=== PATIENT | male | born 1945 | race Caucasian/White ===

== ENCOUNTER 2019-12-10 16:02 | Outpatient (CLI) | payer MEDICARE, BC, SELFPAY ==
--- NOTE | ~2019-12-10 | CT_ITS ---
EXAMINATION: CT abdomen pelvis wo con EXAM DATE: 12/10/2019 16:18 INDICATION: Left-sided groin pain. Kidney stone. TECHNIQUE: Spiral CT of the abdomen and pelvis was performed without contrast. Axial, coronal and sag ittal images were reviewed. The dose-length product (DLP) for this examination was 516.36 mGy-cm. T he exposure was tailored according to patient size (auto mA exposure control), and iterative reconstr uction (ASIR) was used as additional dose reduction technique. There is no prior study for compariso n. FINDINGS: There are 2 punctate left calyceal stones. No hydronephrosis or ureteral stones. There is m ild prostatomegaly. The bladder is unremarkable. The liver, spleen, adrenal glands and pancreas are unremarkable. There is cholelithiasis within an otherwise unremarkable gallbladder. No evidence of obstructive biliary disease. There is no retroperitoneal or pelvic lymphadenopathy. Small umbilic al and left inguinal fat-containing hernia. Mild scattered arteriosclerotic disease. The appendix is normal. There is a 3 cm duodenal diverticulum. There is expected amount of colonic stool. There is mild sigmoid colonic diverticulosis. There is no adjacent inflammatory change to sug gest diverticulitis. No free intraperitoneal gas. The heart is normal in size. There are no peric ardial or pleural effusions. The lung bases are unremarkable. There are no osteoblastic or osteolyt ic lesions identified. There is chronic L5 spondylolysis bilaterally with grade 2 anterolisthesis L5 on S1. IMPRESSION: 1. Punctate left nephrolithiasis. No hydronephrosis or acute findings. 2. Mild colonic diverticulosis. 3. Small umbilical and left inguinal fat-containing hernias. 4. Duodenal diverticulum. 5. Cholelithiasis Reviewed, dictated and finalized at location A. [employer] B[employer]PER
== END 2019-12-10 16:03 | disposition home or self-care (01) ==
PROVIDERS: PCP Family Medicine; Visit Provider Family Medicine
DX: N20.0 Calculus of kidney (principal); K57.30 Diverticulosis of large intestine without perforation or abscess without bleeding; K40.90 Unilateral inguinal hernia, without obstruction or gangrene, not specified as recurrent; K42.9 Umbilical hernia without obstruction or gangrene; K57.10 Diverticulosis of small intestine without perforation or abscess without bleeding; K80.20 Calculus of gallbladder without cholecystitis without obstruction
CPT/HCPCS: 74176

== ENCOUNTER → 2020-11-03 09:06 | Outpatient (CLI) | payer MEDICARE, BC, SELFPAY ==
--- NOTE | ~2020-11-03 | MR_ITS ---
EXAMINATION: MR lumbar spine wo con DATE: 11/03/2020 09:55 INDICATION: Low back pain. TECHNIQUE: Magnetic resonance imaging (MRI) of the lumbar spine was performed without intravenous con trast. Sequences included sagittal T2-weighted FSE, sagittal T2-weighted FS FSE, sagittal T1-weighted FSE, and axial T2-weighted FSE. COMPARISON: None FINDINGS: There is 6 degrees dextrocurvature of thoracolumbar spine. There are chronic bilateral L5 p ars defects. There is 9 mm anterolisthesis of L5 on S1 and 3 mm retrolisthesis of L2 on L3. There is mild chronic height loss of L5 vertebral body posteriorly. There is severely decreased disc height at L2-L3, mildly decreased disc height at L3-L4, severely decreased disc height at L4-L5, and mildly de creased disc at L5-S1. The distal spinal cord signal intensity is normal. The conus medullaris is at L1. The following disc levels are specifically discussed: L1-L2: The disc is mildly bulging. There is mild bilateral facet joint osteoarthritis. There is mild bilateral neural foraminal stenosis. There is no central canal stenosis. L2-L3: The disc is bulging and has an annular fissure. There is moderate bilateral facet joint osteoa rthritis. There is moderate bilateral neural foraminal stenosis. There is mild central canal stenosis . L3-L4: The disc is bulging and has an annular fissure. There is mild bilateral facet joint osteoarthr itis. There is mild bilateral neural foraminal stenosis. There is mild central canal stenosis. L4-L5: The disc is bulging and has an annular fissure. There is severe right and moderate left facet joint osteoarthritis. There is moderate bilateral neural foraminal stenosis. There is mild central ca nal stenosis. L5-S1: The disc is bulging and has an annular fissure. There is mild bilateral facet joint osteoarthr itis. There is mild bilateral neural foraminal stenosis. There is no central canal stenosis. IMPRESSION: 1. Severe lumbar spondylosis. 2. Chronic bilateral L5 pars defects with grade 2 anterolisthesis of L5 on S1. Reviewed, dictated and finalized at location A. ER WASHER
== END ==
PROVIDERS: PCP Family Medicine; Visit Provider Family Medicine
DX: M54.5 Low back pain (principal); G89.29 Other chronic pain; N39.3 Stress incontinence (female) (male); M47.816 Spondylosis without myelopathy or radiculopathy, lumbar region; M53.86 Other specified dorsopathies, lumbar region; M43.17 Spondylolisthesis, lumbosacral region
CPT/HCPCS: 72148

== ENCOUNTER 2021-01-19 12:26 | Outpatient (CLI) | payer MEDICARE, BC, SELFPAY ==
[2021-01-19 13:30] LABS: Basophils Percent Auto 0.4 % (0.2-1.2); Eosinophils Absolute Auto 0.1 K/mm3 (0-0.3); Eosinophils Percent Auto 1.2 % (0-4.4); Hemoglobin 15.1 g/dL (14.0-18.0); Immature Granulocyte Absolute 0.02 K/mm3 (0.00-0.031); Immature Granulocyte Percent A 0.3 % (0-0.5); Lymphocytes Absolute Auto 1.42 K/mm3 (0.9-3.2); Lymphocytes Percent Auto 21.3 % (18.3-44.2); Mean Corpuscular HGB Conc 33.6 g/dl (32-36); Mean Corpuscular Hemoglobin 30.4 pg (26-34); Mean Corpuscular Volume 90.7 fl (80-100); Monocytes Absolute Auto 0.5 K/mm3 (0.1-0.6); Monocytes Percent Auto 7.3 % (2.6-8.5); Neutrophils Absolute Auto 4.6 K/mm3 (1.3-6.7); Neutrophils Percent Auto 69.5 % (45.5-73.1); Platelet Count Result 165 k/mm3 (150-375); Red Blood Count 4.96 M/mm3 (4.6-6.20); Red Cell Distribution Width 14.4 % (11.5-14.5); White Blood Count 6.7 K/mm3 (4.5-10.0)
[2021-01-19 13:42] LABS: Prothrombin Time 13.6 Seconds (11.1-14.7)
[2021-01-19 13:43] LABS: Partial Thromboplastin Time 34.9 SECONDS (22.3-36.8)
[2021-01-19 13:45] LABS: Anion Gap 3 mmol/L (8-16); Blood Urea Nitrogen 23 mg/dL (9-20); Calcium 8.9 mg/dL (8.4-10.2); Carbon Dioxide 32 mmol/L (22-30); Chloride 106 mmol/L (98-107); Estimated Glomerular Filt Rate > 60; Glucose 109 mg/dL (75-110); Potassium 4.1 mmol/L (3.4-5.0); Sodium 141 mmol/L (137-145)
== END 2021-01-19 12:27 | disposition home or self-care (01) ==
LOC: ANHSURGERY 12:33
PROVIDERS: PCP Family Medicine; Visit Provider Urology
DX: Z01.818 Encounter for other preprocedural examination (principal); N32.9 Bladder disorder, unspecified
CPT/HCPCS: 36415; 80048; 85025; 85610; 85730; 87086

== ENCOUNTER → 2021-01-23 02:59 | Outpatient (CLI) | payer MEDICARE, BC, SELFPAY ==
[2021-01-23 19:43] LABS: SARS-CoV-2 RNA PCR Negative
== END ==
PROVIDERS: PCP Family Medicine; Visit Provider Urology
DX: Z01.812 Encounter for preprocedural laboratory examination (principal); Z20.822 Contact with and (suspected) exposure to COVID-19
CPT/HCPCS: C9803; U0003; U0005

== ENCOUNTER 2021-01-27 15:57 | Inpatient (IN) | payer MEDICARE, BC, SELFPAY ==
[2021-01-14 15:21] VITALS: BMI 27.1
[2021-01-26] VITALS (13 sets, daily range): BP systolic 112–176; BP diastolic 81–98; PULSE 62–76; RESP 12–22; TEMP 36.1–36.8; O2SAT 96–100; BMI 27.3
[2021-01-26] MEDS: LACTATED RINGERS 1,000 ML 30 ML IV CONT (10:45)
--- NOTE | 2021-01-26 11:34 | WPDHPUPDATE1 ---
History and Physical Update Update Date/Time: 01/26/21 11:34 History and Physical has been reviewed, including an updated exam of the patient. There are NO changes in the patient's condition. Risks, benefits, and alternatives have been discussed and questions answered. Patient agrees to proceed with procedure.
--- NOTE | 2021-01-26 11:39 | WPDANESEPPF ---
Anes - Initial Pre Proc Eval Procedure: Operation Date: 01/26/21 12:45 Proposed Procedures p Cystoscopy, Possible Bilateral Retrograde Pyelogram, Possible Bilateral Stent Placement - Marcus Trevizo MD s Trans Urethral Resection Bladder Tumor, - Marcus Trevizo MD s Trans Urethral Resection Prostate - Marcus Trevizo MD Date/Time: 01/26/21 11:39 Surgeon: Marcus Trevizo MD Pre Op Diagnosis: bladder lesion Patient Data Age: 75 Gender: M Height: 5 ft 7 in Weight: 79.25 kg Allergies Allergy/AdvReac Type Severity Reaction Status Date / Time No Known Allergies Allergy Mild Unverified 01/26/21 10:28 Home Medications Medication Instructions Recorded Confirmed Type pantoprazole 40 mg tablet,delayed 40 mg PO QAM #30 tablet 12/10/19 01/26/21 Rx release zolpidem 10 mg tablet 10 mg PO . q.h.s. PRN #30 tablet 07/27/20 01/26/21 Rx fluticasone propionate [Flonase 1 spray INTRANASAL BID PRN 01/14/21 01/26/21 History Allergy Relief] gabapentin 200 mg PO TID 01/14/21 01/26/21 History Patient hx anesthesia problems: none Family hx anesthesia problems: none PMFSH Past Medical History Medical History Acute prostatitis Cholelithiasis Chronic low back pain Microscopic hematuria Peripheral neuropathy Ureteral stone Urinary stress incontinence, male Family History Family History Mother Patient's mother is Family history of malignant neoplasm Father Cerebrovascular accident Sibling Family history of coronary artery disease Social History Social History Smoking status: Never smoker Tobacco type: smokeless tobacco Smokeless tobacco user: chewing tobacco Second hand tobacco smoke exposure: No Additional smoking assessment comments: STATES 1 TIN/WEEK Alcohol intake: current Alcohol use details: STATES MAYBE 2 DRINKS/YEAR Substance use: never Substance use type: does not use Living arrangements: with family Spiritual care concerns: No Anes - Eval Final PreProcedure Day of Procedure 04/20/21 11:39 Patient weight: overweight Heart: regular rate and rhythm Lungs: clear to auscultation Airway: Mallampati scale class II Neurological: alert and oriented Last oral intake: >/= 8 hours ASA classification: III Emergent: no Anesthetic plan: proceed Anesthesia type and monitoring: general and standard monitoring Informed Consent: The patient's anesthetic plan and its attendant risks and benefits were discussed with the patient/family/POA. Questions were solicited and answers provided to the satisfaction of the patient/family/POA.
[2021-01-26] MEDS: ceFAZolin 2 GM/D5W 50 ML 2 GM/50 ML BAG IVPB (12:10)
--- NOTE | 2021-01-26 13:20 | SUR.OPER ---
BILATERAL URETERAL STENTS 4.8FR CONTOUR LOT [id number], EXP 11-09-23 RIGHT AND LEFT
[2021-01-26] MEDS: LIDOCAINE HCL 2% GEL UROJET 10 ML PKG MUCOUS MEM (13:24)
--- NOTE | 2021-01-26 13:27 | P.OP_ITS ---
Procedure Note - Detailed Date of procedure: 01/26/21 Pre-op diagnosis: bladder lesion Post-op diagnosis: same Procedure performed: Cystoscopy, bilateral retrogrades, bilateral distal ureteroscopy, bilateral ureteral stent placement 4.8 Ivorian contour, transurethral resection of large bladder tumor area greater than 5 cm, transurethral resection of prostate Description of procedure: Patient is taken the operative suite and correctly identified. Once anesthesia was obtained he was placed in dorsal lithotomy position and prepped and draped usual sterile fashion. Twenty-two Ivorian scope was inserted into the meatus. He does have some lateral lobe hypertrophy but more impressively has some papillary gross the prostatic fossa near the bladder neck area. Upon entering the bladder he has diffuse bladder tumors scattered throughout. These are extending on the posterior wall, right wall, trigone area obscuring the right ureteral orifice. At this point time a 24 Ivorian resectoscope sheath was inserted in. We resected most visible tumor along the posterior wall lateral ambriz. We resected the tumors around the right ureteral orifice. We also then sent this tissue for analysis. We then went ahead and resected the prostate in order to remove the urethral involvement. This also was was sent as a separate specimen. Hemostasis was achieved using a ball electrode. We then went ahead and placed a guidewire into the ureteral o rifices. Rigid ureteral scope was then inserted to both the right and the left ureter. No discrete tumor noted in the intramural ureter at this point time but he is at high risk. Pyelograms were performed bilaterally without any evidence of filling defects. Given the high involvement around the orifices there was concern regarding edema. We went ahead and placed 4.8 Ivorian contour stents bilaterally. 2% viscous lidocaine was then inserted into the urethra. Twenty- four Ivorian [address] was placed connected to continuous bladder irrigation. He is taken recovery stable condition. Patient will be admitted for CBI. Stents will need to remain in for minimum of probably 6 weeks if he can tolerate it. He will then require a reinspection resection in the operating room at that time. Anesthesia: GLMA Surgeon: Marcus Trevizo MD Estimated blood loss (mL): 25 Drains: Yes Packing: No Pathology: yes Complications: No immediate complications Condition: stable Disposition: PACU
[2021-01-26] MEDS: fentaNYL CITRATE INJ (*CRX) 100 MCG/2 ML VIAL 25 MCG IV PUSH ×6 (13:47→14:40)
[2021-01-26] MEDS: DEXTROSE 5%/LACTATED RINGERS 1,000 ML 125 ML IV CONT (15:51)
[2021-01-26] MEDS: GABAPENTIN 100 MG CAPSULE 200 MG PO ×2 (16:44→21:01)
[2021-01-26] MEDS: MORPHINE SULFATE (*CRX) 2 MG/ML INJ IV PUSH (20:15)
[2021-01-26] MEDS: ONDANSETRON INJ 4 MG/2 ML VIAL IV PUSH (20:15)
[2021-01-26] MEDS: HYOSCYAMINE SULFATE 0.125 MG TABLET SUBLINGUAL (20:19)
[2021-01-26] MEDS: HYDROcodone/acetaminophen (*CRX) 5-325 MG TABLET 1 TAB PO (21:00)
[2021-01-26] MEDS: ZOLPIDEM TARTRATE (*CRX) 5 MG TABLET 10 MG PO (21:47)
--- NOTE | ~2021-01-27 | XR_ITS ---
EXAMINATION: XR retrograde pyelo w/stent BI DATE: 01/26/2021 13:29 INDICATION: Bilateral ureteral stents. TECHNIQUE: 10 fluoroscopic images of the abdomen and pelvis were obtained during procedure performed by Dr. Trevizo. Radiologist was not present for the imaging or procedure. The amount of fluoroscopy time used during this procedure was 0.6 minutes. COMPARISON: 12/10/2019 FINDINGS: Images demonstrate initially retrograde contrast injection into the right ureter and renal collecting system with a wire advanced into the right renal hilum. Subsequently there is retrograde contrast in jection into the left ureter and renal collecting system. Final images demonstrate placement of bilat eral ureteral stents with loops formed in the bladder and proximal tips extending into the bilateral renal pelvises. IMPRESSION: 1. Placement of bilateral internal ureteral stents which extend from the left and right ureteral pelv ises into the bladder. See procedure note for further detail. Reviewed, dictated and finalized at location A. IMPRESSION: 1. Placement of bilateral internal ureteral stents which extend from the left a nd right ureteral pelvises into the bladder. See procedure note for further det ail.
[2021-01-27 01:02] VITALS: BP 143/83; PULSE 75; RESP 18; TEMP 36.6; O2SAT 95
[2021-01-27 04:11] VITALS: BP 158/86; PULSE 76; RESP 18; TEMP 36.4; O2SAT 98
[2021-01-27] MEDS: GABAPENTIN 100 MG CAPSULE 200 MG PO ×3 (05:01→21:00)
[2021-01-27 06:11] LABS: Hematocrit 41.8 % (42.0-52.0); Hemoglobin 13.9 g/dL (14.0-18.0)
[2021-01-27 06:22] LABS: Anion Gap 6 mmol/L (8-16); Blood Urea Nitrogen 15 mg/dL (9-20); Calcium 8.8 mg/dL (8.4-10.2); Carbon Dioxide 29 mmol/L (22-30); Chloride 106 mmol/L (98-107); Estimated CRCL calculation 58 ml/min; Estimated Glomerular Filt Rate > 60; Glucose 130 mg/dL (75-110); Potassium 4.1 mmol/L (3.4-5.0); Sodium 141 mmol/L (137-145)
--- NOTE | 2021-01-27 07:58 | WPDUROPN2 ---
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 From resection of large bladder tumor involving the floor posterior wall right lateral wall as well as bladder neck and prostatic urethra. Bilateral ureteral stents also placed. Continue with CBI this morning re-evaluate this afternoon. He may require another 24 hour stay with CBI. Will plan Bergman catheter until next Monday. Further recommendation will be made pending his pathology report. If there is no muscle invasion then I would recommend repeat cysto with possible resection in the OR in 6 weeks time with hopefully removal of stents and bilateral ureteroscopy at that time Subjective Subjective Date/Time Seen: 01/27/21 07:58 Post Op day: 1 Principal diagnosis: Bladder tumors Interval history: postoperative day 1. From resection of a large bladder tumor. Also placed bilateral ureteral stents. His urine is still somewhat bloody and CBI. Review of Systems Review of Systems: All systems reviewed & are unremarkable except as noted in HPI and below Exam Const: General: cooperative and comfortable Chest: Chest palpation & inspection: normal inspection of the chest Resp: Effort & Inspection: normal respiratory effort Cardio: Rate: regular rate Rhythm: regular rhythm GI: GI Palp: Yes Soft to palpation Urinary Catheter: Urinary Catheter: patent and draining and urine red Objective Data Vital Signs Vital Signs: Vital Signs - 24 hr 01/26/21 10:25 01/26/21 13:34 01/26/21 13:49 Temperature 36.8 C 36.4 C L Pulse Rate 75 73 66 Respiratory Rate 18 17 19 Blood Pressure 112/85 163/88 H 173/98 H Pulse Oximetry 100 100 100 01/26/21 14:05 01/26/21 14:20 01/26/21 14:37 Temperature Pulse Rate 63 76 62 Respiratory Rate 15 22 H 12 Blood Pressure 176/93 H 159/89 H 163/89 H Pulse Oximetry 100 100 96 01/26/21 14:51 01/26/21 15:03 01/26/21 15:15 Temperature 36.1 C L Pulse Rate 67 66 65 Respiratory Rate 16 16 16 Blood Pressure 162/83 H 165/81 H 153/91 H Pulse Oximetry 96 96 96 01/26/21 15:30 01/26/21 16:00 01/26/21 17:00 Temperature 36.2 C L 36.7 C 36.8 C Pulse Rate 68 66 67 Respiratory Rate 16 16 16 Blood Pressure 168/95 H 150/89 H 142/84 H Pulse Oximetry 97 99 99 01/26/21 19:45 01/27/21 01:02 01/27/21 04:11 Temperature 36.7 C 36.6 C 36.4 C Pulse Rate 65 75 76 Respiratory Rate 18 18 18 Blood Pressure 154/83 H 143/83 H 158/86 H Pulse Oximetry 98 95 98 Intake/Output Intake/Output: Intake & Output 01/24/21 01/25/21 01/26/21 01/27/21 23:59 23:59 23:59 23:59 Intake Total 5670 600 Output Total 7900 5545 Balance -7954 -2838 Meds/Results Medications: Active Medications Generic Name Dose Route Start Last Admin Trade Name Freq PRN Reason Stop Dose Admin Hydrocodone Bitart/Acetaminophen 1 tab 01/26/21 15:06 01/26/21 21:00 Hydrocodone/Acetaminophen (*Crx) 5-325 Mg Tablet PO 1 tab Q4H PRN Administration Pain Rated 1-6 Cephalexin HCl 500 mg 01/27/21 09:00 Cephalexin 500 Mg Capsule PO QID JOYCE Docusate Sodium 100 mg 01/26/21 17:00 01/26/21 16:44 Docusate Sodium 100 Mg Capsule PO Not Given BID [facility] Fluticasone Propionate 1 spray 01/26/21 15:06 Fluticasone Propionate 0.05% Na Spr 16 Gm Btl (*Bkc) NASAL BID PRN SEASONAL ALLERGIES Gabapentin 200 mg 01/26/21 15:40 01/27/21 05:01 Gabapentin 100 Mg Capsule PO 200 mg Q8HR JOYCE Administration Hyoscyamine 0.125 mg 01/26/21 15:06 01/26/21 20:19 Hyoscyamine Sulfate 0.125 Mg Tablet SUBLINGUAL 0.125 mg Q6H PRN Administration Bladder Spasm Morphine Sulfate 2 mg 01/26/21 15:06 01/26/21 20:15 Morphine Sulfate (*Crx) 2 Mg/Ml Inj IV PUSH 2 mg Q2H PRN Administration Pain Rated 7-10 Naloxone HCl 0.1 mg 01/26/21 15:06 Naloxone Hcl 0.4 Mg/Ml Vial IV PU
[2021-01-27] MEDS: CEPHALEXIN 500 MG CAPSULE PO ×4 (09:01→20:39)
[2021-01-27] MEDS: DOCUSATE SODIUM 100 MG CAPSULE PO (09:02)
[2021-01-27] MEDS: PANTOPRAZOLE 40 MG TABLET PO (09:02)
--- NOTE | 2021-01-27 09:14 | WPDANESPN ---
Anes - Prog Note Post-Op Date/Time: 01/27/21 09:14 Cardiovascular status: normal Respiratory status: normal Airway patency: baseline Mental status: baseline Post-Op hydration status: normal Vital Signs: Last Vital Signs Temp 36.4 C 01/27/21 04:11 Pulse 76 01/27/21 04:11 Resp 18 01/27/21 04:11 BP 158/86 H 01/27/21 04:11 Pulse Ox 98 01/27/21 04:11 Pain Score (VAS): no c/o pain I/O: Intake & Output 01/26/21 01/27/21 01/27/21 23:59 07:59 15:59 Intake Total 2170 600 240 Output Total 750 1625 Balance 1420 -1025 240 Laboratory Tests 01/27/21 05:51 01/27/21 05:51 01/27/21 01/27/21 05:51 05:51 Hgb 13.9 L Hct 41.8 L Sodium 141 Potassium 4.1 Chloride 106 Carbon Dioxide 29 Anion Gap 6 L BUN 15 D Creatinine 0.90 Estim Creat Clear Calc 58 Estimated GFR > 60 Glucose 130 H Calcium 8.8 Post-procedural complaints: none Patient Feedback: Patient satisfied with anesthetic care.
--- NOTE | 2021-01-27 09:47 | WPDANESPN ---
Anes - Prog Note Post-Op Date/Time: 01/27/21 09:47 Cardiovascular status: normal Respiratory status: normal Airway patency: baseline Mental status: baseline Post-Op hydration status: normal Vital Signs: Last Vital Signs Temp 36.4 C 01/27/21 04:11 Pulse 76 01/27/21 04:11 Resp 18 01/27/21 04:11 BP 158/86 H 01/27/21 04:11 Pulse Ox 98 01/27/21 04:11 Pain Score (VAS): 0 I/O: Intake & Output 01/26/21 01/27/21 01/27/21 23:59 07:59 15:59 Intake Total 2170 600 240 Output Total 750 1625 Balance 1420 -1025 240 Laboratory Tests 01/27/21 05:51 01/27/21 05:51 01/27/21 01/27/21 05:51 05:51 Hgb 13.9 L Hct 41.8 L Sodium 141 Potassium 4.1 Chloride 106 Carbon Dioxide 29 Anion Gap 6 L BUN 15 D Creatinine 0.90 Estim Creat Clear Calc 58 Estimated GFR > 60 Glucose 130 H Calcium 8.8 Post-procedural complaints: none Patient Feedback: Patient satisfied with anesthetic care.
[2021-01-27 10:28] VITALS: BP 141/76; PULSE 70; RESP 18; TEMP 36.3; O2SAT 96
[2021-01-27 14:14] VITALS: BP 139/73; PULSE 71; RESP 16; TEMP 36.1; O2SAT 97
[2021-01-27 19:44] VITALS: BP 127/78; PULSE 74; RESP 17; TEMP 36.6; O2SAT 95
[2021-01-27] MEDS: ZOLPIDEM TARTRATE (*CRX) 5 MG TABLET 10 MG PO (22:25)
[2021-01-28 04:40] VITALS: BP 156/87; PULSE 77; RESP 18; TEMP 36.7; O2SAT 96
[2021-01-28] MEDS: GABAPENTIN 100 MG CAPSULE 200 MG PO ×3 (05:01→21:33)
[2021-01-28] MEDS: CEPHALEXIN 500 MG CAPSULE PO ×4 (10:38→21:33)
[2021-01-28] MEDS: DOCUSATE SODIUM 100 MG CAPSULE PO ×2 (10:39→18:05)
[2021-01-28] MEDS: PANTOPRAZOLE 40 MG TABLET PO (10:39)
--- NOTE | 2021-01-28 12:43 | WPDUROPN2 ---
Progress Note: A&P Assessment and Plan (1) Bladder tumor: Code(s): D49.4 - Neoplasm of unspecified behavior of bladder Status: Acute Assessment and Plan: Keep CBI on low flow until this evening/night, then if light pink without clots, may wean to off. If urine turns red off CBI, restart on low flow. Irrigate catheter PRN until clear without clots. Some small clots were removed during irrigation by RN this morning, catheter is flowing well to gravity. Subjective Subjective Date/Time Seen: 01/28/21 12:43 Post Op day: 2 Principal diagnosis: Bladder tumors Interval history: postoperative day 2 s/p resection of a large bladder tumor. Also placed bilateral ureteral stents. His urine is still somewhat bloody and he continues on CBI. It was stopped for an hour prior to my visit this morning and was pink at the time it was turned off, but has since gotten red and clots are passing in the tubing. CBI was restarted on low flow. Review of Systems Cardiovascular: Cardiovascular: Denies chest pain Respiratory: Respiratory: Reports no additional respiratory complaints Gastrointestinal: Gastrointestinal: Denies abdominal pain, Denies nausea and Denies vomiting Genitourinary: Genitourinary: Reports hematuria and Denies flank pain Exam Resp: Effort & Inspection: normal respiratory effort Cardio: Rate: regular rate GI: GI Palp: Yes Soft to palpation and No Tenderness to palpation present (GI) : General: Yes no CVA tenderness Urinary Catheter: Urinary Catheter: patent and draining and urine clear Extrem: General: no edema Objective Data Vital Signs Vital Signs: Vital Signs - 24 hr 01/27/21 14:14 01/27/21 19:44 01/28/21 04:40 Temperature 96.9 F L 98 F 98.1 F Pulse Rate 71 74 77 Respiratory Rate 16 17 18 Blood Pressure 139/73 127/78 156/87 H Pulse Oximetry 97 95 96 Intake/Output Intake/Output: Intake & Output 01/25/21 01/26/21 01/27/21 01/28/21 23:59 23:59 23:59 23:59 Intake Total 5670 1870 490 Output Total 7900 2725 250 Balance -2230 -855 240 Meds/Results Medications: Active Medications Generic Name Dose Route Start Last Admin Trade Name Freq PRN Reason Stop Dose Admin Hydrocodone Bitart/Acetaminophen 1 tab 01/26/21 15:06 01/26/21 21:00 Hydrocodone/Acetaminophen (*Crx) 5-325 Mg Tablet PO 1 tab Q4H PRN Administration Pain Rated 1-6 Cephalexin HCl 500 mg 01/27/21 09:00 01/28/21 10:38 Cephalexin 500 Mg Capsule PO 500 mg QID JOYCE Administration Docusate Sodium 100 mg 01/26/21 17:00 01/28/21 10:39 Docusate Sodium 100 Mg Capsule PO 100 mg BID JOYCE Administration Fluticasone Propionate 1 spray 01/26/21 15:06 Fluticasone Propionate 0.05% Na Spr 16 Gm Btl (*Bkc) NASAL BID PRN SEASONAL ALLERGIES Gabapentin 200 mg 01/26/21 15:40 01/28/21 05:01 Gabapentin 100 Mg Capsule PO 200 mg Q8HR JOYCE Administration Hyoscyamine 0.125 mg 01/26/21 15:06 01/26/21 20:19 Hyoscyamine Sulfate 0.125 Mg Tablet SUBLINGUAL 0.125 mg Q6H PRN Administration Bladder Spasm Morphine Sulfate 2 mg 01/26/21 15:06 01/26/21 20:15 Morphine Sulfate (*Crx) 2 Mg/Ml Inj IV PUSH 2 mg Q2H PRN Administration Pain Rated 7-10 Naloxone HCl 0.1 mg 01/26/21 15:06 Naloxone Hcl 0.4 Mg/Ml Vial IV PUSH Q2M PRN Opiate Reversal Ondansetron HCl 4 mg 01/26/21 15:06 01/26/21 20:15 Ondansetron Inj 4 Mg/2 Ml Vial IV PUSH 4 mg Q12H PRN Administration Nausea And Vomiting Pantoprazole Sodium 40 mg 01/27/21 09:00 01/28/21 10:39 Pantoprazole 40 Mg Tablet PO 40 mg QAM JOYCE Administration Zolpidem Tartrate 10 mg 01/26/21 15:06 01/27/21 22:25 Zolpidem Tartrate (*Crx) 5 Mg Tablet PO 10 mg HS PRN Administration insomnia Radiology Results: ITS Impressions Retrograde Pyelogram 01/26/21 13:47 IMPRESSION: 1. Placement of bilateral internal ureteral stents which extend from the left and r
[2021-01-28 14:00] VITALS: BP 138/74; PULSE 82; RESP 16; TEMP 36.6; O2SAT 95
[2021-01-28] MEDS: HYOSCYAMINE SULFATE 0.125 MG TABLET SUBLINGUAL (18:10)
[2021-01-28 21:13] VITALS: BP 135/70; PULSE 75; RESP 16; TEMP 36.8; O2SAT 94
[2021-01-29] VITALS (12 sets, daily range): BP systolic 129–162; BP diastolic 72–91; PULSE 70–92; RESP 14–18; TEMP 36.1–37; O2SAT 93–100
[2021-01-29] MEDS: ZOLPIDEM TARTRATE (*CRX) 5 MG TABLET 10 MG PO ×2 (00:33→22:26)
[2021-01-29] MEDS: GABAPENTIN 100 MG CAPSULE 200 MG PO ×3 (06:11→22:26)
[2021-01-29] MEDS: DOCUSATE SODIUM 100 MG CAPSULE PO ×2 (08:34→16:35)
[2021-01-29] MEDS: PANTOPRAZOLE 40 MG TABLET PO (08:34)
[2021-01-29] MEDS: CEPHALEXIN 500 MG CAPSULE PO ×4 (08:34→22:27)
--- NOTE | 2021-01-29 12:12 | WPDUROPN2 ---
Progress Note: A&P Assessment and Plan (1) Bladder tumor: Code(s): D49.4 - Neoplasm of unspecified behavior of bladder Status: Acute Assessment and Plan: Urine bloody again after 2-3 hours off CBI with activity. Will go to OR today for : Cysto with clot evacuation. Keep NPO, obtain consent. Subjective Subjective Date/Time Seen: 01/29/21 12:12 Post Op day: 3 Principal diagnosis: Bladder tumors Interval history: postoperative day 3 s/p resection of a large bladder tumor. Also placed bilateral ureteral stents. His urine is still somewhat bloody and he continues on CBI. It was stopped this morning around 9am, it was on low flow with pink colored urine and no clots present. After two hours of walking, up to chair and a shower, the urine has become carter red in color. Review of Systems Cardiovascular: Cardiovascular: Denies chest pain Respiratory: Respiratory: Reports no additional respiratory complaints Gastrointestinal: Gastrointestinal: Denies abdominal pain, Denies nausea and Denies vomiting Genitourinary: Genitourinary: Reports hematuria Exam Resp: Effort & Inspection: normal respiratory effort Cardio: Rate: regular rate GI: GI Palp: Yes Soft to palpation and No Tenderness to palpation present (GI) : General: Yes no CVA tenderness Urinary Catheter: Urinary Catheter: patent and draining and urine pink Extrem: General: no edema Objective Data Vital Signs Vital Signs: Vital Signs - 24 hr 01/28/21 14:00 01/28/21 21:13 01/29/21 05:04 Temperature 97.8 F 98.3 F 98.6 F Pulse Rate 82 75 87 Respiratory Rate 16 16 16 Blood Pressure 138/74 135/70 145/83 H Pulse Oximetry 95 94 95 Intake/Output Intake/Output: Intake & Output 01/26/21 01/27/21 01/28/21 01/29/21 23:59 23:59 23:59 23:59 Intake Total 5670 1870 38979 300 Output Total 7900 2725 1375 400 Balance -1440 -405 8770 -100 Meds/Results Medications: Active Medications Generic Name Dose Route Start Last Admin Trade Name Freq PRN Reason Stop Dose Admin Hydrocodone Bitart/Acetaminophen 1 tab 01/26/21 15:06 01/26/21 21:00 Hydrocodone/Acetaminophen (*Crx) 5-325 Mg Tablet PO 1 tab Q4H PRN Administration Pain Rated 1-6 Cephalexin HCl 500 mg 01/27/21 09:00 01/29/21 08:34 Cephalexin 500 Mg Capsule PO 500 mg QID JOYCE Administration Docusate Sodium 100 mg 01/26/21 17:00 01/29/21 08:34 Docusate Sodium 100 Mg Capsule PO 100 mg BID JOYCE Administration Fluticasone Propionate 1 spray 01/26/21 15:06 Fluticasone Propionate 0.05% Na Spr 16 Gm Btl (*Bkc) NASAL BID PRN SEASONAL ALLERGIES Gabapentin 200 mg 01/26/21 15:40 01/29/21 06:11 Gabapentin 100 Mg Capsule PO 200 mg Q8HR JOYCE Administration Hyoscyamine 0.125 mg 01/26/21 15:06 01/28/21 18:10 Hyoscyamine Sulfate 0.125 Mg Tablet SUBLINGUAL 0.125 mg Q6H PRN Administration Bladder Spasm Morphine Sulfate 2 mg 01/26/21 15:06 01/26/21 20:15 Morphine Sulfate (*Crx) 2 Mg/Ml Inj IV PUSH 2 mg Q2H PRN Administration Pain Rated 7-10 Naloxone HCl 0.1 mg 01/26/21 15:06 Naloxone Hcl 0.4 Mg/Ml Vial IV PUSH Q2M PRN Opiate Reversal Ondansetron HCl 4 mg 01/26/21 15:06 01/26/21 20:15 Ondansetron Inj 4 Mg/2 Ml Vial IV PUSH 4 mg Q12H PRN Administration Nausea And Vomiting Pantoprazole Sodium 40 mg 01/27/21 09:00 01/29/21 08:34 Pantoprazole 40 Mg Tablet PO 40 mg QAM JOYCE Administration Zolpidem Tartrate 10 mg 01/26/21 15:06 01/29/21 00:33 Zolpidem Tartrate (*Crx) 5 Mg Tablet PO 10 mg HS PRN Administration insomnia Radiology Results: ITS Impressions Retrograde Pyelogram 01/26/21 13:47 IMPRESSION: 1. Placement of bilateral internal ureteral stents which extend from the left and right ureteral pelvises into the bladder. See procedure note for further detail.
--- NOTE | 2021-01-29 12:36 | PC.NURSE ---
Patient to OR per sammi. Report to MALCOLM Ndiaye.
[2021-01-29] MEDS: LACTATED RINGERS 1,000 ML 30 ML IV CONT (12:42)
--- NOTE | 2021-01-29 13:26 | WPDANESEFPP ---
Anes - Eval Final PreProcedure Day of Procedure 01/29/21 13:26 Patient weight: overweight Heart: regular rate and rhythm Lungs: clear to auscultation Airway: Mallampati scale class II Neurological: alert and oriented Last oral intake: >/= 8 hours ASA classification: III Emergent: no Anesthetic plan: proceed Anesthesia type and monitoring: general LMA and standard monitoring Informed Consent: The patient's anesthetic plan and its attendant risks and benefits were discussed with the patient/family/POA. Questions were solicited and answers provided to the satisfaction of the patient/family/POA.
--- NOTE | 2021-01-29 14:01 | WPDHPUPDATE1 ---
History and Physical Update Update Date/Time: 01/29/21 14:01 History and Physical has been reviewed, including an updated exam of the patient. There are NO changes in the patient's condition. Risks, benefits, and alternatives have been discussed and questions answered. Patient agrees to proceed with procedure. proceed with clot evacuation
[2021-01-29] MEDS: ceFAZolin 2 GM/D5W 50 ML 2 GM/50 ML BAG IVPB (14:09)
[2021-01-29] MEDS: LIDOCAINE HCL 2% GEL UROJET 10 ML PKG MUCOUS MEM (14:37)
--- NOTE | 2021-01-29 14:41 | P.OP_ITS ---
Procedure Note - Detailed Date of procedure: 01/29/21 Pre-op diagnosis: bladder lesion Hematuria with clot Post-op diagnosis: same Procedure performed: Cystoscopy with clot evacuation and fulguration with Bergman catheter placement Description of procedure: Patient is taken the operative suite correctly identified. Once anesthesia was obtained he was placed in dorsal lithotomy position and prepped draped his sterile fashion. The prior Bergman catheter was removed. Twenty-four Bahraini resectoscope sheath is inserted the bladder. There is no real active bleeding noted at this time he did have some small clots which were retrieved. We did take off some clot that was adhered to the prior resection site and fulgurated the base again. At the time at termination there was good hemostasis. 2% viscous lidocaine was inserted urethra and [address] was placed with 20 cc in the balloon. This was connected to continuous bladder irrigation is taken recovery room stable condition. Anesthesia: GLMA Surgeon: Marcus Trevizo MD Estimated blood loss (mL): 0 Drains: Yes Packing: No Pathology: none sent Complications: No immediate complications Condition: stable Disposition: PACU
--- NOTE | 2021-01-29 15:11 | SUR.PHASEI ---
O2 removed at 1510.
--- NOTE | 2021-01-29 16:10 | PC.NURSE ---
Pt returned from OR per stretcher. Report received from MALCOLM King.
[2021-01-30 05:37] VITALS: BP 141/81; PULSE 79; RESP 14; TEMP 36.4; O2SAT 96
[2021-01-30] MEDS: GABAPENTIN 100 MG CAPSULE 200 MG PO (06:45)
--- NOTE | 2021-01-30 07:41 | WPDANESPN ---
Anes - Prog Note Post-Op Date/Time: 01/30/21 07:41 Cardiovascular status: normal Respiratory status: normal Airway patency: baseline Mental status: baseline Post-Op hydration status: normal Vital Signs: Last Vital Signs Temp 36.4 C 01/30/21 05:37 Pulse 79 01/30/21 05:37 Resp 14 01/30/21 05:37 BP 141/81 H 01/30/21 05:37 Pulse Ox 96 01/30/21 05:37 Pain Score (VAS): 1 I/O: Intake & Output 01/29/21 01/29/21 01/30/21 15:59 23:59 07:59 Intake Total 450 120 300 Output Total 2600 1400 5600 Balance -2150 -1280 -5300 Laboratory Tests 01/27/21 05:51 01/27/21 05:51 Post-procedural complaints: none Patient Feedback: Patient satisfied with anesthetic care.
[2021-01-30] MEDS: PANTOPRAZOLE 40 MG TABLET PO (08:55)
[2021-01-30] MEDS: CEPHALEXIN 500 MG CAPSULE PO (08:55)
[2021-01-30] MEDS: DOCUSATE SODIUM 100 MG CAPSULE PO (08:57)
--- NOTE | 2021-01-30 12:11 | WPDUROPN2 ---
Progress Note: A&P Assessment and Plan (1) Bladder tumor: Code(s): D49.4 - Neoplasm of unspecified behavior of bladder Status: Acute Assessment and Plan: Doing well at this point time after cysto with clot evacuation and fulguration. Will discharge home with Bergman catheter. Will plan Bergman Monday or if urine remains clear. Long-term plan includes removing the stents with repeat cystoscopy in the operating room with ureteroscopy in about 6 to 8 week's time. 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 Urine is clear at this point time. Review of Systems Review of Systems: All systems reviewed & are unremarkable except as noted in HPI and below Exam Const: General: cooperative and comfortable Eyes: General: appearance normal, both eyes and all related structures Chest: Chest palpation & inspection: normal inspection of the chest Resp: Effort & Inspection: normal respiratory effort GI: GI Palp: Yes abdominal tenderness Urinary Catheter: Urinary Catheter: patent and draining and urine clear Objective Data Vital Signs Vital Signs: Vital Signs - 24 hr 01/29/21 12:40 01/29/21 14:48 01/29/21 15:00 Temperature 36.7 C 36.9 C Pulse Rate 90 84 82 Respiratory Rate 18 18 16 Blood Pressure 139/83 153/91 H Pulse Oximetry 94 99 100 01/29/21 15:15 01/29/21 15:30 01/29/21 15:45 Temperature Pulse Rate 74 73 71 Respiratory Rate 18 18 14 Blood Pressure 151/72 H 146/81 H Pulse Oximetry 95 95 93 01/29/21 16:10 01/29/21 16:25 01/29/21 16:49 Temperature 36.1 C L 36.3 C L 36.6 C Pulse Rate 76 80 70 Respiratory Rate 16 16 16 Blood Pressure 162/79 H 129/89 149/82 H Pulse Oximetry 96 95 96 01/29/21 17:50 01/29/21 20:22 01/30/21 05:37 Temperature 36.3 C L 36.7 C 36.4 C Pulse Rate 92 82 79 Respiratory Rate 16 14 14 Blood Pressure 129/74 133/78 141/81 H Pulse Oximetry 94 94 96 Intake/Output Intake/Output: Intake & Output 01/27/21 01/28/21 01/29/21 01/30/21 23:59 23:59 23:59 23:59 Intake Total 1870 47246 870 540 Output Total 2726 1375 4400 2650 Balance -855 8770 -3530 -5060 Meds/Results Medications: Active Medications Generic Name Dose Route Start Last Admin Trade Name Freq PRN Reason Stop Dose Admin Hydrocodone Bitart/Acetaminophen 1 tab 01/26/21 15:06 01/26/21 21:00 Hydrocodone/Acetaminophen (*Crx) 5-325 Mg Tablet PO 1 tab Q4H PRN Administration Pain Rated 1-6 Cephalexin HCl 500 mg 01/27/21 09:00 01/30/21 08:55 Cephalexin 500 Mg Capsule PO 500 mg QID JOYCE Administration Docusate Sodium 100 mg 01/26/21 17:00 01/30/21 08:57 Docusate Sodium 100 Mg Capsule PO 100 mg BID JOYCE Administration Fluticasone Propionate 1 spray 01/26/21 15:06 Fluticasone Propionate 0.05% Na Spr 16 Gm Btl (*Bkc) NASAL BID PRN SEASONAL ALLERGIES Gabapentin 200 mg 01/26/21 15:40 01/30/21 06:45 Gabapentin 100 Mg Capsule PO 200 mg Q8HR JOYCE Administration Hyoscyamine 0.125 mg 01/26/21 15:06 01/28/21 18:10 Hyoscyamine Sulfate 0.125 Mg Tablet SUBLINGUAL 0.125 mg Q6H PRN Administration Bladder Spasm Morphine Sulfate 2 mg 01/26/21 15:06 01/26/21 20:15 Morphine Sulfate (*Crx) 2 Mg/Ml Inj IV PUSH 2 mg Q2H PRN Administration Pain Rated 7-10 Naloxone HCl 0.1 mg 01/26/21 15:06 Naloxone Hcl 0.4 Mg/Ml Vial IV PUSH Q2M PRN Opiate Reversal Ondansetron HCl 4 mg 01/26/21 15:06 01/26/21 20:15 Ondansetron Inj 4 Mg/2 Ml Vial IV PUSH 4 mg Q12H PRN Administration Nausea And Vomiting Pantoprazole Sodium 40 mg 01/27/21 09:00 01/30/21 08:55 Pantoprazole 40 Mg Tablet PO 40 mg QAM JOYCE Administration Zolpidem Tartrate 10 mg 01/26/21 15:06 01/29/21 22:26 Zolpidem Tartrate (*Crx) 5 Mg Tablet P
--- NOTE | 2021-01-30 12:15 | PM.DS ---
DS: Admitting Diagnosis Admitting Diagnosis Admitting Diagnosis: Bladder tumor DS: Discharge Diagnosis Discharge Diagnosis (1) Transitional cell carcinoma of bladder: Code(s): C67.9 - Malignant neoplasm of bladder, unspecified Status: Acute DS: Summary Hospital Course Reason for hospitalization: bladder tumor requiring transurethral resectio Hospital Course: Patient was admitted for transurethral section of bladder tumor. This was performed on Monday. he had a significant tumor burden involving the floor posterior wall and lateral ambriz of the bladder. Also extended to the prostatic urethra. Bilateral ureteral stents were also placed at the same setting. Postoperatively he developed some gross hematuria with clot. He was taken back to the operative suite on Monday where a very small clot was retrieved and we fulgurated the bases again. There was good hemostasis. Postoperatively patient has done well his urine has been clear. He will be discharged home with Bergman catheter and have that removed in 5-7 days in the office. Time Spent with Patient Time attestation: Total time spent providing and/or coordinating discharge services: DS: Data Data Completed and Pending Completed studies during hospitalization: Pending at discharge 01/26/21 12:33 Surgical [PTH] Routine Discharge Plan Discharge Attending physician on discharge: Marcus Trevizo Discharging Clinician: Marcus Trevizo Patient Disposition: Home, Self-Care Activity: february shower Diet: as tolerated Discharge Instructions: discharged home with Bergman catheter. Instructed on catheter care as well as use of leg bag. No heavy lifting until seen in the office. Follow-up Monday or for Bergman catheter removal call for that appointment. Patient Instructions: Pain Management (DC) Follow-up/Referrals: Marcus Trevizo MD [Physician] - Discharge Medications: Continued pantoprazole [Protonix] 40 mg tablet,delayed release (DR/EC) 40 mg PO QAM Qty: 30 RF: 11 fluticasone propionate [Flonase Allergy Relief] 50 mcg/actuation spray,suspension 1 spray intranasal BID PRN (Reason: SEASONAL ALLERGIES) RF: 0 gabapentin 100 mg Tablet 200 mg PO TID RF: 0 zolpidem 10 mg tablet 10 mg PO . q.h.s. PRN (Reason: insomnia) Qty: 30 RF: 5 Date of admission: 01/28/21 13:34 Primary Care Provider: Jordan Hunter Admitting Provider: Marcus Trevizo Attending physician on admission: Marcus Trevizo Condition: Stable
== END 2021-01-30 13:40 | disposition home or self-care (01) | DRG 658 ==
LOC: ANHSURGERY 01-28 06:21 → ANH3MED 01-28 06:21
PROVIDERS: Admitting Provider Urology; PCP Family Medicine; Visit Provider Urology
PROC: 0T788DZ Dilation of Bilateral Ureters with Intraluminal Device, Via Natural or Artificial Opening Endoscopic (ICD-10-PCS; CPT 52352; principal; 2021-01-26 12:45)
PROC: 0TBB8ZZ Excision of Bladder, Via Natural or Artificial Opening Endoscopic (ICD-10-PCS; 2021-01-26 12:45)
PROC: 0VT08ZZ Resection of Prostate, Via Natural or Artificial Opening Endoscopic (ICD-10-PCS; CPT 52601; 2021-01-26 12:45)
PROC: 0TCB8ZZ Extirpation of Matter from Bladder, Via Natural or Artificial Opening Endoscopic (ICD-10-PCS; CPT 52001; principal; 2021-01-29 13:45)
DX: C67.9 Malignant neoplasm of bladder, unspecified (principal); R31.0 Gross hematuria; N40.1 Benign prostatic hyperplasia with lower urinary tract symptoms; N39.498 Other specified urinary incontinence; G62.9 Polyneuropathy, unspecified; F17.220 Nicotine dependence, chewing tobacco, uncomplicated
CPT/HCPCS: 36415; 74420; 80048; 85014; 85018; 88305; A9270; C1758; C1769; C2617; G0378; J0690; J1100; J2270; J2405; J2704; J3010; J7120; J7121; Q9966

== ENCOUNTER 2021-03-10 12:38 | Outpatient (CLI) | payer MEDICARE, BC, SELFPAY | END 2021-03-10 12:39 | disposition home or self-care (01) | LOC: ANHSURGERY 12:42 | PROVIDERS: PCP Family Medicine; Visit Provider Urology | DX: Z01.818 Encounter for other preprocedural examination (principal); N32.9 Bladder disorder, unspecified | CPT/HCPCS: 87086 ==

== ENCOUNTER → 2021-03-13 01:27 | Outpatient (CLI) | payer MEDICARE, BC, SELFPAY ==
[2021-03-13 19:37] LABS: SARS-CoV-2 RNA PCR Negative
== END ==
PROVIDERS: PCP Family Medicine; Visit Provider Urology
DX: Z01.812 Encounter for preprocedural laboratory examination (principal); Z20.822 Contact with and (suspected) exposure to COVID-19
CPT/HCPCS: C9803; U0003; U0005

== ENCOUNTER 2021-03-16 01:28 | Day surgery (SDC) | payer MEDICARE, BC, SELFPAY ==
[2021-03-01 12:58] VITALS: BMI 27.4
--- NOTE | 2021-03-15 16:26 | WPDANESEPPF ---
Anes - Initial Pre Proc Eval Procedure: Operation Date: 03/16/21 07:30 Proposed Procedures p Cystoscopy, Bilateral Ureteroscopy, Bilateral Retrograde Pyelogram, Bilateral Stent Removal, Possible Bilateral Stent Exchange - Marcus Trevizo MD Date/Time: 03/15/21 16:26 Surgeon: Marcus Trevizo MD Pre Op Diagnosis: bladder lesion Patient Data Age: 75 Gender: M Height: 1.7 m Weight: 79.5 kg Allergies Allergy/AdvReac Type Severity Reaction Status Date / Time No Known Allergies Allergy Mild Verified 03/16/21 06:03 Home Medications Medication Instructions Recorded Confirmed Type fluticasone propionate [Flonase 1 spray INTRANASAL BID PRN 01/14/21 03/16/21 History Allergy Relief] pantoprazole 40 mg tablet,delayed 40 mg PO QAM #30 tablet 02/01/21 03/16/21 Rx release zolpidem 10 mg tablet 10 mg PO . q.h.s. PRN #30 tablet 02/01/21 03/16/21 Rx gabapentin 300 mg capsule 300 mg PO TID 02/23/21 03/16/21 History Patient hx anesthesia problems: none Family hx anesthesia problems: none PMFSH Past Medical History Medical History Acute prostatitis Cholelithiasis Chronic low back pain Microscopic hematuria Peripheral neuropathy Ureteral stone Urinary stress incontinence, male Family History Family History Mother Patient's mother is Family history of malignant neoplasm Father Cerebrovascular accident Sibling Family history of coronary artery disease Social History Social History Smoking status: Never smoker Smokeless tobacco user: chewing tobacco Second hand tobacco smoke exposure: No Additional smoking assessment comments: STATES 1 TIN/WEEK Alcohol intake: current Substance use: never Substance use type: does not use Living arrangements: with family Spiritual care concerns: No Anes - Eval Final PreProcedure Day of Procedure 03/15/21 16:26 Patient weight: overweight Heart: regular rate and rhythm Lungs: clear to auscultation and normal air movement Airway: Mallampati scale class II Neurological: alert and oriented Last oral intake: >/= 8 hours ASA classification: III Emergent: no Anesthetic plan: proceed Anesthesia type and monitoring: general LMA Informed Consent: The patient's anesthetic plan and its attendant risks and benefits were discussed with the patient/family/POA. Questions were solicited and answers provided to the satisfaction of the patient/family/POA.
[2021-03-16] VITALS (10 sets, daily range): BP systolic 141–182; BP diastolic 74–101; PULSE 60–76; RESP 14–20; TEMP 36–36.5; O2SAT 96–100
--- NOTE | ~2021-03-16 | XR_ITS ---
EXAMINATION: XR retrograde pyelo w/stent LT EXAM DATE: 03/16/2021 08:09 INDICATION: Bilateral retrograde pyelogram, right stent removal, left stent replacement. TECHNIQUE: Fluoroscopy used during procedure performed by Dr. Marcus Trevizo MD, urologis t. The radiologist Ramon Amador M.D. dictating this report of the image(s) available was not present for the procedure. Total fluoroscopic time of 45 seconds. The DAP for this procedure was 704 radcm2 . A total of 15 images sent to PACS from the exam. Cine run(s) available for review. Comparison is made to prior examination from 01/26/2021. FINDINGS: Initial image demonstrates bilateral ureteral double-J stents. Both ureters were cannulated and injected. The right ureter is unremarkable. The left ureter has regions of narrowing, with mild to moderate left hydronephrosis. Uncertain whether or not the narrowing is phasic or from pathology. Final image has a left double-J ureteral stent in position. Correlate with procedure note. IMPRESSION: Mild to moderate left hydronephrosis with multiple regions ureteral narrowing. Left stent in position. Reviewed, dictated and finalized at location A.
[2021-03-16] MEDS: LACTATED RINGERS 1,000 ML 30 ML IV CONT ×2 (06:20→08:37)
--- NOTE | 2021-03-16 07:12 | PM.IMHP ---
H&P: HPI History of Present Illness Date/Time: 03/16/21 07:12 Chief Complaint: bladder cancer Narrative: 75 year old male with recent resection of large tumor burden - low grade non invasive with bilateral ureteroscopy and stent placement in 01/27. Here for repeat cysto and evaluation of ureters. Review of Systems Review of Systems: All systems reviewed & are unremarkable except as noted in HPI and below PMFSH Past Medical History Medical History Acute prostatitis Cholelithiasis Chronic low back pain Microscopic hematuria Peripheral neuropathy Ureteral stone Urinary stress incontinence, male Family History Family History Mother Patient's mother is Family history of malignant neoplasm Father Cerebrovascular accident Sibling Family history of coronary artery disease Social History Social History Smoking status: Never smoker Smokeless tobacco user: chewing tobacco Second hand tobacco smoke exposure: No Additional smoking assessment comments: STATES 1 TIN/WEEK Alcohol intake: current Substance use: never Substance use type: does not use Living arrangements: with family Spiritual care concerns: No Meds Home Medications and Allergies Home Medications Medication Instructions Recorded Confirmed Type fluticasone propionate [Flonase 1 spray INTRANASAL BID PRN 01/14/21 03/16/21 History Allergy Relief] pantoprazole 40 mg tablet,delayed 40 mg PO QAM #30 tablet 02/01/21 03/16/21 Rx release zolpidem 10 mg tablet 10 mg PO . q.h.s. PRN #30 tablet 02/01/21 03/16/21 Rx gabapentin 300 mg capsule 300 mg PO TID 02/23/21 03/16/21 History Allergies Allergy/AdvReac Type Severity Reaction Status Date / Time No Known Allergies Allergy Mild Verified 03/16/21 06:03 Exam Const: General: cooperative and comfortable HENMT: Head: normal to inspection Eyes: General: appearance normal, both eyes and all related structures Chest: Chest palpation & inspection: normal inspection of the chest Resp: Effort & Inspection: normal respiratory effort Cardio: Rate: regular rate Rhythm: regular rhythm GI: Inspection: non-distended GI Palp: Yes Soft to palpation Assessment and Plan Assessment and plan (1) Transitional cell carcinoma of bladder: Code(s): C67.9 - Malignant neoplasm of bladder, unspecified Status: Acute Assessment and Plan: Proceed with cysto, bilateral ureteroscopy, retrogrades and possible stent exchange
--- NOTE | 2021-03-16 07:15 | WPDHPUPDATE1 ---
History and Physical Update Update Date/Time: 03/16/21 07:15 History and Physical has been reviewed, including an updated exam of the patient. There are NO changes in the patient's condition. Risks, benefits, and alternatives have been discussed and questions answered. Patient agrees to proceed with procedure.
[2021-03-16] MEDS: ceFAZolin 2 GM/D5W 50 ML 2 GM/50 ML BAG IVPB (07:22)
[2021-03-16] MEDS: LIDOCAINE HCL 2% GEL UROJET 10 ML PKG MUCOUS MEM (08:09)
--- NOTE | 2021-03-16 08:14 | W.PM.PROC2 ---
Procedure Note - Detailed Date of Procedure 03/16/21 Pre-op Diagnosis Bladder carcinoma Post-op Diagnosis same (No evidence of recurrence at this time. Mild bulbar urethral stricture. Mild left mid ureteral narrowing) Procedure Performed Urethral dilation with Amplatz dilators, cystoscopy, bilateral retrograde pyelograms, bilateral ureteroscopy, right stent removal, left stent exchange, fulguration of prostatic fossa Surgeon Marcus Trevizo MD Anesthesia general Description of Procedure Patient is taken the operative suite and correctly identified. Once anesthesia was obtained he was placed in dorsal lithotomy position and prepped and draped usual sterile fashion. Twenty-two Grenadian scope was inserted into the urethra. He was noted to have a bulbar stricture. We thus placed a Bentson wire through the stricture and dilated with an am plants dilators. Dilated up to 24 Grenadian. Cystoscope then passed easily into the bladder. His prostatic fossa was open but did have some friable tissue which was oozing. Upon entering the bladder he had some edema around the stents. No new tumors were seen at this time. The right ureteral stent was grasped wire was passed through it. Rigid ureteral scope was then inserted into the distal ureter. There is no evidence of distal ureteral tumors. Pyelogram was then performed there was no discrete filling defects noted. The left stent was then grasped and a similar procedure was performed. It was noted that he had some narrowing at the mid ureter. The collecting system however filled out nicely without any evidence of filling defects. Given the narrowing we decided to replace the stent and upgrade to a 6 Grenadian contour. This was performed with the proximal end coiled in the renal pelvis and the distal in the bladder. We then placed a 24 Grenadian resectoscope sheath in and fulgurated the prostatic fossa using a ball electrode. 2% viscous lidocaine was inserted urethra. Eighteen Grenadian 3 was placed with 15 cc in the balloon. This was connected to continuous bladder irrigation. He was taken recovery stable condition. Will wean that often recovery room discharged home with Bergman catheter. Plan is to remove the catheter on Monday. Plan on left stent removal in approximately 3 to 4 weeks and then we will start BCG if there is no other recurrent tumors noted. Drains Yes Packing No Pathology none sent Complications No immediate complications Condition stable Disposition PACU
[2021-03-16] MEDS: fentaNYL CITRATE INJ (*CRX) 100 MCG/2 ML VIAL 25 MCG IV PUSH ×8 (08:24→08:58)
[2021-03-16] MEDS: oxyCODONE HCL (*CRX) 5 MG TAB IR PO (09:55)
== END 2021-03-16 10:47 | disposition home or self-care (01) ==
PROVIDERS: PCP Family Medicine; Visit Provider Urology
PROC: (CPT 52352; principal; 2021-03-16 07:30)
DX: Z08 Encounter for follow-up examination after completed treatment for malignant neoplasm (principal); N35.912 Unspecified bulbous urethral stricture, male; N13.30 Unspecified hydronephrosis; N39.3 Stress incontinence (female) (male); N40.1 Benign prostatic hyperplasia with lower urinary tract symptoms; N52.01 Erectile dysfunction due to arterial insufficiency; Z85.51 Personal history of malignant neoplasm of bladder; G62.9 Polyneuropathy, unspecified; F17.220 Nicotine dependence, chewing tobacco, uncomplicated
CPT/HCPCS: 52332; 52214; 74420; A9270; C1726; C1769; C2617; J0690; J1100; J2405; J2704; J3010; J7120; Q9966

== ENCOUNTER 2022-01-11 11:41 | Outpatient (CLI) | payer MEDICARE, BC, SELFPAY ==
--- NOTE | 2022-01-11 11:46 | ECG_ITS ---
Measurements Intervals [place] Rate: 65 P: 22 NM: 184 QRS: -42 QRSD: 136 T: 19 QT: 426 QTc: 444 Interpretive Statements SINUS RHYTHM MARKED LEFT AXIS DEVIATION [QRS AXIS < -30] RIGHT BUNDLE BRANCH BLOCK [120+ ms QRS DURATION, UPRIGHT V1, 40+ ms S IN I/aVL/V4/V5/V6] NO PREVIOUS ECG AVAILABLE FOR COMPARISON Electronically Signed On 01-11-2022 16:29:22 CDT by Isabella Urias M.D.
[2022-01-11 12:16] LABS: Basophils Percent Auto 0.5 % (0.2-1.2); Eosinophils Absolute Auto 0.2 K/mm3 (0-0.3); Eosinophils Percent Auto 2.2 % (0-4.4); Hematocrit 46.3 % (42.0-52.0); Hemoglobin 15.3 g/dL (14.0-18.0); Immature Granulocyte Absolute 0.02 K/mm3 (0.00-0.031); Immature Granulocyte Percent A 0.3 % (0-0.5); Lymphocytes Absolute Auto 1.71 K/mm3 (0.9-3.2); Lymphocytes Percent Auto 22.2 % (18.3-44.2); Mean Corpuscular Hemoglobin 30.1 pg (26-34); Mean Corpuscular Volume 91.1 fl (80-100); Mean Platelet Volume 11.3 fl (7.4-10.4); Monocytes Absolute Auto 0.6 K/mm3 (0.1-0.6); Monocytes Percent Auto 7.9 % (2.6-8.5); Neutrophils Absolute Auto 5.2 K/mm3 (1.3-6.7); Neutrophils Percent Auto 66.9 % (45.5-73.1); Platelet Count Result 183 k/mm3 (150-375); Red Blood Count 5.08 M/mm3 (4.6-6.20); Red Cell Distribution Width 13.7 % (11.5-14.5); White Blood Count 7.7 K/mm3 (4.5-10.0)
[2022-01-11 12:31] LABS: Prothrombin Time 12.9 Seconds (11.1-14.7)
== END 2022-01-11 11:42 | disposition home or self-care (01) ==
LOC: ANHSURGERY 11:45
PROVIDERS: PCP Family Medicine; Visit Provider Urology
DX: Z01.818 Encounter for other preprocedural examination (principal); I10 Essential (primary) hypertension; D49.4 Neoplasm of unspecified behavior of bladder; I45.10 Unspecified right bundle-branch block
CPT/HCPCS: 36415; 85025; 85610; 85730; 87086; 93005

== ENCOUNTER 2022-01-18 01:25 | Day surgery (SDC) | payer MEDICARE, BC, SELFPAY ==
[2022-01-07 10:02] VITALS: BMI 28.6
--- NOTE | 2022-01-07 10:23 | PC.NURSE ---
Report to the Outpatient Waiting Room, entrance under the green pavilion located off [facility], at time _8:15AM on date ___01/18/22____. OR Time: ___10:15AM . - You and your visitor will be asked a series of questions to screen for COVID 19 for your protection. - A mask is required within the hospital. Preoperative COVID Testing Requirements: BRING COVID CARD TO HOSPITAL, IF YOU HAVEN'T ALREADY No COVID Test needed if: (proof is required; if not received patient will have Rapid Test prior to entry) - Patient has received COVID Vaccine at least 14 days prior to procedure date or - Patient has positive COVID test result within last 90 days of surgery date. COVID Test needed if above criteria is not met If not COVID vaccinated a COVID test must be conducted within 72 hours of surgery and patient is asked to isolate self from time of testing until procedure. You will go to the [facility] for your COVID testing. The [facility] is located at the corner of [address] [facility]. You will only be called if COVID results are positive and your surgeon may reschedule your elective surgery date. Patients may have clear liquids (water, carbonated beverages, clear teas, apple juice) until 3 hours prior to surgery with a maximum of 20 ounces. - No food from midnight until time of surgery - Infants may have breast milk until 4 hours before surgery, formula 6 hours prior to surgery. - Children will be allowed to drink immediately following surgery. If applicable, please bring a bottle or sippy cup to assist with drinking. Juice, water, soda, and popsicles are readily available. For infants on formula, please bring formula the day of surgery. Pacifiers are allowed. Take the following medications with a SIP of water the morning of surgery: ___NONE Medications to discontinue per physician NONE Date to take last dose Please no make-up, nail spanish, hairspray, perfume, deodorant, or body powder the day of surgery. No jewelry (including any body piercings) or valuables the day of surgery, leave them at home. Please take a shower or bath the night before, or the morning of, surgery with an antibacterial soap. Wear comfortable, loose fitting clothing. Children are encouraged to wear pajamas. - Jewelry must be removed prior to entering the operating room. Rings and piercings that are not removed may be cut off. - The hospital will not accept responsibility for valuables. - Please leave all valuables, including medications, at home the day of surgery. If you are going home after surgery, a licensed driver service technician must drive you home. - NO public transportation without another adult. - We recommend that an adult stay with you for 24 hours following discharge. - We also recommend that you do not drive, make important decision, drink alcoholic beverages, or take any drugs that were not prescribed by your health care provider for at least 24 hours after your discharge time. For Pediatric surgeries, we recommend two adults accompany the child home (only one inside the building at this time). One visitor will be allowed to accompany the patient into the hospital. Patients visitor will be instructed to remain with patient at all times or leave the building. We will allow the visitor to come back to the postoperative area when patient is ready. Follow any additional instructions given to you from your surgeon. Telephone instructions given to __PATIENT and asked if any additional questions and then verbalized understanding. Patient advised to call surgeon office or pre surgery nurse liaison [phone] if any additional questions.
[2022-01-18] VITALS (7 sets, daily range): BP systolic 113–166; BP diastolic 60–98; PULSE 52–66; RESP 8–16; TEMP 36.4–36.5; O2SAT 93–100
--- NOTE | 2022-01-18 09:01 | WPDHPUPDATE1 ---
History and Physical Update Update Date/Time: 01/18/22 09:01 History and Physical has been reviewed, including an updated exam of the patient. There are NO changes in the patient's condition. Risks, benefits, and alternatives have been discussed and questions answered. Patient agrees to proceed with procedure.
[2022-01-18] MEDS: LACTATED RINGERS 1,000 ML 30 ML IV CONT ×2 (09:07→11:23)
--- NOTE | 2022-01-18 09:11 | WPDANESEPPF ---
Anes - Initial Pre Proc Eval Procedure: Operation Date: 01/18/22 10:15 Proposed Procedures p Cystoscopy, Bladder Biopsy - Marcus Trevizo MD s Trans Urethral Resection Bladder Tumor - Marcus Trevizo MD Date/Time: 01/18/22 09:11 Surgeon: Marcus Trevizo MD Pre Op Diagnosis: Bladder Ca Patient Data Age: 76 Gender: M Height: 1.7 m Weight: 81.15 kg Last Vital Signs Temp 36.4 C 01/18/22 08:17 Pulse 65 01/18/22 08:17 Resp 16 01/18/22 08:17 BP 161/84 H 01/18/22 08:17 Pulse Ox 98 01/18/22 08:17 Allergies Allergy/AdvReac Type Severity Reaction Status Date / Time No Known Allergies Allergy Mild Verified 01/18/22 08:47 Home Medications Medication Instructions Recorded Confirmed Type fluticasone propionate 50 1 spray INTRANASAL BID PRN #16 g 10/28/21 01/18/22 Rx mcg/actuation nasal spray,suspension zolpidem 10 mg tablet 10 mg PO . q.h.s. PRN #30 tablet 10/28/21 01/18/22 Rx simvastatin 20 mg tablet 20 mg PO DAILY #30 tablet 12/29/21 01/18/22 Rx pantoprazole 40 mg tablet,delayed 40 mg PO QAM #30 tablet 12/30/21 01/18/22 Rx release sildenafil (pulm.hypertension) 20 mg PO DAILY PRN 01/07/22 01/18/22 History Patient hx anesthesia problems: none Family hx anesthesia problems: none Results Review: All pre-operative results and documents have been reviewed as part of the pre-operative evaluation. [facility] Past Medical History Medical History Acute prostatitis BMI 28.0-28.9,adult BMI 29.0-29.9,adult Cholelithiasis Chronic low back pain Microscopic hematuria Overweight (BMI 25.0-29.9) Peripheral neuropathy Ureteral stone Urinary stress incontinence, male Family History Family History Mother Patient's mother is Family history of malignant neoplasm Father Cerebrovascular accident Sibling Family history of coronary artery disease Social History Social History Smoking status: Never smoker Smokeless tobacco user: chewing tobacco Second hand tobacco smoke exposure: No Smoking end date: 04/08/00 Additional smoking assessment comments: STATES 1 TIN/WEEK Alcohol intake: current Alcohol use details: STATES MAYBE 2 DRINKS/YEAR Substance use: never Substance use type: does not use Living arrangements: with family Additional living arrangements comments: Spiritual care concerns: No Anes - Eval Final PreProcedure Day of Procedure 01/18/22 09:11 Patient weight: overweight Heart: regular rate and rhythm Lungs: clear to auscultation Airway: Mallampati scale class II Neurological: alert and oriented Last oral intake: >/= 8 hours ASA classification: III Emergent: no Anesthetic plan: proceed Anesthesia type and monitoring: general LMA and standard monitoring Results Review: All pre-operative results and documents have been reviewed as part of the pre-operative evaluation. Informed Consent: The patient's anesthetic plan and its attendant risks and benefits were discussed with the patient/family/POA. Questions were solicited and answers provided to the satisfaction of the patient/family/POA.
[2022-01-18] MEDS: ceFAZolin 2 GM/D5W 50 ML 2 GM/50 ML BAG IVPB (10:17)
[2022-01-18] MEDS: LIDOCAINE HCL 2% GEL UROJET 10 ML PKG MUCOUS MEM (10:30)
--- NOTE | 2022-01-18 10:58 | W.PM.PROC2 ---
Procedure Note - Detailed Date of Procedure 01/18/22 Pre-op Diagnosis Bladder Ca Post-op Diagnosis Same Procedure Performed Cystoscopy, bladder biopsy with fulguration Surgeon Marcus Trevizo MD Anesthesia General Description of Procedure Patient is taken the operative suite correctly identified. Once anesthesia was obtained was placed in dorsal lithotomy position and prepped draped in the usual sterile fashion. Twenty-two Icelandic scope was inserted in the bladder direct vision. The bladder has some small papillary lesions along the dome area. We went ahead and used the cold cup biopsy to biopsy this area. He then has some diffuse erythema we biopsy the left floor, midline floor, and right lateral wall. We then used a rollerball to fulgurate these areas. There was good hemostasis at termination of procedure. 2% viscous lidocaine was inserted urethra patient is taken recovery stable condition. Instructed to call us for results in 1 week time. Estimated Blood Loss 0 Drains No Packing No Pathology Yes Complications No immediate complications Condition Stable Disposition PACU
[2022-01-18] MEDS: fentaNYL CITRATE INJ (*CRX) 100 MCG/2 ML VIAL 25 MCG IV PUSH ×4 (11:20→11:31)
== END 2022-01-18 12:40 | disposition home or self-care (01) ==
PROVIDERS: PCP Family Medicine; Visit Provider Urology
PROC: 0TBB8ZX Excision of Bladder, Via Natural or Artificial Opening Endoscopic, Diagnostic (ICD-10-PCS; CPT 52204; principal; 2022-01-18 10:15)
PROC: 0TBB8ZZ Excision of Bladder, Via Natural or Artificial Opening Endoscopic (ICD-10-PCS; CPT 52204; 2022-01-18 10:15)
DX: C67.1 Malignant neoplasm of dome of bladder (principal); N30.20 Other chronic cystitis without hematuria; G62.9 Polyneuropathy, unspecified
CPT/HCPCS: 52204; 88305; A9270; J0690; J1100; J2405; J2704; J3010; J7120

== ENCOUNTER 2022-01-24 09:13 | Outpatient (CLI) | payer MEDICARE, BC, SELFPAY ==
[2022-01-24 10:32] LABS: Hemoglobin A1C 5.6 % (<5.7)
== END 2022-01-24 09:14 | disposition home or self-care (01) ==
LOC: ANHSURGERY 09:18
PROVIDERS: PCP Family Medicine; Visit Provider Urology
DX: Z01.818 Encounter for other preprocedural examination (principal); N52.9 Male erectile dysfunction, unspecified
CPT/HCPCS: 36415; 83036

== ENCOUNTER 2022-02-16 00:25 | Day surgery (SDC) | payer MEDICARE, BC, SELFPAY ==
[2022-01-24 09:34] VITALS: BP 166/90; PULSE 72; RESP 16; TEMP 36.8; O2SAT 96; BMI 28.5
--- NOTE | 2022-01-24 09:47 | PC.NURSE ---
Report to the Outpatient Waiting Room, entrance under the green pavilion located off [facility], at time __10:00AM on date __02/16/22 . OR Time: __12:00PM . - You and your visitor will be asked a series of questions to screen for COVID 19 for your protection. - A mask is required within the hospital. Preoperative COVID Testing Requirements: No COVID Test needed if: (proof is required; if not received patient will have Rapid Test prior to entry) - Patient has received COVID Vaccine at least 14 days prior to procedure date or - Patient has positive COVID test result within last 90 days of surgery date. COVID Test needed if above criteria is not met If not COVID vaccinated a COVID test must be conducted within 72 hours of surgery and patient is asked to isolate self from time of testing until procedure. You will go to the [facility] for your COVID testing. [facility] is located at the corner of [address] [facility]. You will only be called if COVID results are positive and your surgeon may reschedule your elective surgery date. Patients may have clear liquids (water, carbonated beverages, clear teas, apple juice) until 3 hours prior to surgery with a maximum of 20 ounces. - No food from midnight until time of surgery - Infants may have breast milk until 4 hours before surgery, infant formula 6 hours prior to surgery. - Children will be allowed to drink immediately following surgery. If applicable, please bring a bottle or sippy cup to assist with drinking. Juice, water, soda, and popsicles are readily available. For infants on formula, please bring formula the day of surgery. Pacifiers are allowed. Take the following medications with a SIP of water the morning of surgery: ____NONE Medications to discontinue per physician NONE Date to take last dose Please no make-up, nail german, hairspray, perfume, deodorant, or body powder the day of surgery. No jewelry (including any body piercings) or valuables the day of surgery, leave them at home. Please take a shower or bath the night before, or the morning of, surgery with an antibacterial soap. Wear comfortable, loose fitting clothing. Children are encouraged to wear pajamas. - Jewelry must be removed prior to entering the operating room. Rings and piercings that are not removed may be cut off. - The hospital will not accept responsibility for valuables. - Please leave all valuables, including medications, at home the day of surgery. If you are going home after surgery, a licensed log driver must drive you home. - NO public transportation without another adult. - We recommend that an adult stay with you for 24 hours following discharge. - We also recommend that you do not drive, make important decision, drink alcoholic beverages, or take any drugs that were not prescribed by your health care provider for at least 24 hours after your discharge time. For Pediatric surgeries, we recommend two adults accompany the child home (only one inside the building at this time). One visitor will be allowed to accompany the patient into the hospital. Patients visitor will be instructed to remain with patient at all times or leave the building. We will allow the visitor to come back to the postoperative area when patient is ready. Follow any additional instructions given to you from your surgeon. Telephone instructions given to ___PATIENT and asked if any additional questions and then verbalized understanding. Patient advised to call surgeon office or pre surgery nurse liaison [phone] if any additional questions.
[2022-02-16] VITALS (8 sets, daily range): BP systolic 117–152; BP diastolic 69–85; PULSE 71–105; RESP 11–20; TEMP 36.5–37.6; O2SAT 94–97
[2022-02-16] MEDS: LACTATED RINGERS 1,000 ML 30 ML IV CONT ×2 (10:12→15:12)
[2022-02-16] MEDS: GENTAMICIN SULFATE INJ 415 MG in DEXTROSE 5% 100 ML 100 MG IVPB (10:15)
--- NOTE | 2022-02-16 11:09 | WPDANESEPPF ---
Anes - Initial Pre Proc Eval Procedure: Operation Date: 02/16/22 12:00 Proposed Procedures p Insertion Inflatable Penile Prosthesis - Loc Mcdermott MD Date/Time: 02/16/22 11:09 Surgeon: Loc Mcdermott MD Pre Op Diagnosis: ED Patient Data Age: 76 Gender: M Height: 1.7 m Weight: 82.1 kg Last Vital Signs Temp 36.5 C 02/16/22 09:51 Pulse 71 02/16/22 09:51 Resp 18 02/16/22 09:51 BP 152/85 H 02/16/22 09:51 Pulse Ox 95 02/16/22 09:51 Allergies Allergy/AdvReac Type Severity Reaction Status Date / Time No Known Allergies Allergy Mild Verified 02/16/22 09:58 Home Medications Medication Instructions Recorded Confirmed Type fluticasone propionate 50 1 spray INTRANASAL BID PRN #16 g 10/28/21 02/16/22 Rx mcg/actuation nasal spray,suspension zolpidem 10 mg tablet 10 mg PO . q.h.s. PRN #30 tablet 10/28/21 02/16/22 Rx simvastatin 20 mg tablet 20 mg PO DAILY #30 tablet 12/29/21 02/16/22 Rx pantoprazole 40 mg tablet,delayed 40 mg PO QAM #30 tablet 12/30/21 02/16/22 Rx release Patient hx anesthesia problems: none Family hx anesthesia problems: none Results Review: All pre-operative results and documents have been reviewed as part of the pre-operative evaluation. [facility] Past Medical History Medical History Acute prostatitis BMI 28.0-28.9,adult BMI 29.0-29.9,adult Cholelithiasis Chronic low back pain Microscopic hematuria Overweight (BMI 25.0-29.9) Peripheral neuropathy Ureteral stone Urinary stress incontinence, male Family History Family History Mother Patient's mother is Family history of malignant neoplasm Father Cerebrovascular accident Sibling Family history of coronary artery disease Social History Social History Smoking status: Former smoker Tobacco type: cigars Smokeless tobacco user: chewing tobacco Second hand tobacco smoke exposure: No Smoking end date: 10/09/19 Additional smoking assessment comments: SMOKED CIGARS- 1-2/DAY FOR YEARS, CURRENTLY CHEWS TOBACCO DAILY Alcohol intake: current Alcohol use details: STATES MAYBE 2 DRINKS/YEAR Substance use: never Substance use type: does not use Living arrangements: with family Additional living arrangements comments: Gender identity (if verbalized by the patient): Male Sexual Orientation (if Verbalized by the Patient): Straight or Heterosexual Spiritual care concerns: No Anes - Eval Final PreProcedure Day of Procedure 02/16/22 11:09 Patient weight: overweight Heart: regular rate and rhythm Lungs: clear to auscultation Airway: Mallampati scale class II Neurological: alert and oriented Last oral intake: >/= 8 hours ASA classification: III Emergent: no Anesthetic plan: proceed Anesthesia type and monitoring: general LMA and standard monitoring Results Review: All pre-operative results and documents have been reviewed as part of the pre-operative evaluation. Informed Consent: The patient's anesthetic plan and its attendant risks and benefits were discussed with the patient/family/POA. Questions were solicited and answers provided to the satisfaction of the patient/family/POA.
--- NOTE | 2022-02-16 12:15 | WPDHPUPDATE1 ---
History and Physical Update Update Date/Time: 02/16/22 12:15 History and Physical has been reviewed, including an updated exam of the patient. There are NO changes in the patient's condition. Risks, benefits, and alternatives have been discussed and questions answered. Patient agrees to proceed with procedure.
[2022-02-16] MEDS: ceFAZolin SODIUM 1 GM VIAL IV PUSH (12:22)
[2022-02-16] MEDS: BUPIVACAINE HCL 0.25% PF 30 ML VIAL INFILTRATE (12:22)
--- NOTE | 2022-02-16 15:27 | W.PM.PROC2 ---
Procedure Note - Detailed Date of Procedure 02/16/22 Pre-op Diagnosis Erectile dysfunction Post-op Diagnosis Same Procedure Performed 1. Insertion of 3-piece inflatable penile prosthesis. 2. Artificial erection using pharmacological agent. Surgeon Loc Mcdermott MD Anesthesia General Description of Procedure Informed consent obtained, patient taken to the operating room and given preoperative IV antibiotics with vancomycin and gentamicin. Additionally the patient has been taking oral levofloxacin and done a 3-day wash with Hibiclens. The patient was shaved. He was then prepped with Betadine scrub and paint followed by ChloraPrep. Sterile drapes were placed. We again prepped with ChloraPrep. A 16-Welsh Bergman catheter was inserted with return of clear urine. We then performed a pharmacologically induced erection with dilute lidocaine. There was a symmetric, straight erection. We then made a penoscrotal 3 cm incision. We dissected bluntly down to identify the corporal bodies taking great care not to injure the urethra. Stay sutures of 2-0 PDS were placed in the corporal body. We sharply opened the corpora. We then serially dilated up to a 12 Hernandez dilator. We then measured the corpora. Measurements were 10 cm proximally and 11 cm distally. We irrigated and there was no injury. We then performed an identical procedure on the contralateral side. There was a small left proximal perforation with the 9 Hernandez dilator, however the 11 through 12 dilators did sit appropriately. Measurements were 10 cm proximal, 11 cm distal. Dilators were placed into the corpora bilaterally confirming that there was no crossover. We elected to place an AMS CX device 18 cm + 3 cm of rear tip extenders. We placed a 0 Prolene suture through the left corpora laterally, through the rear tip receiving specialist, and then through the corpora medially. We again irrigated the corporal bodies. We then inserted the prosthesis. We inflated using a surrogate reservoir and the device sat nicely with tips in the mid glans. We then deflated. We then closed the pre-placed 2-0 PDS sutures. With tension placed on the glans sutures, we then tied the rear tip sling on the left securing the prosthesis in position. We again inflated using the surrogate reservoir with an excellent cosmetic result. We then made a right lower quadrant incision for approximately 2 cm. We bluntly dissected down to the external oblique fascia. The fascia was opened. We then the rectus muscle and created a space superiorly in the sub rectus. We emptied the bladder prior to our incision. We then irrigated copiously. We pre-placed 0 Vicryl sutures. We placed the reservoir in the sub rectus space. We fill it with 100 mL and there was no back pressure. We then left 90mL in the reservoir. Our pre-placed external oblique fascia sutures were closed. We then made a subdartos pouch in the midline for the pump placement. It sat nicely in the inferior scrotum. We then closed the hiatus with 3-0 Vicryl suture. The tubing was then brought up to the abdominal incision. Using the quick connect device, we connected the pump to the reservoir. We then cycled the device again and it functioned nicely. We then removed the stay sutures through the glans. We then again irrigated copiously. We closed the scrotal incision with a l transverse followed by longitudinal 3-0 Vicryl sutures and then 3-0 Monocryl skin closure. The right lower quadrant incision was closed with 2-0 Vicryl to Derek's, 3-0 Vicryl deep dermal layer and a 4-0 Monocryl subcuticular closure. Glue was placed over all incisions. A compressive dressing was placed. Patient was awakened and taken to recovery room in stable condition. Drains No Packing No Pathology None sent Complications No immediate complications Condition Stable Disposition PACU
--- NOTE | 2022-02-16 15:41 | SUR.PHASEI ---
Patient came to recovery with a 16F 10mL balloon Bergman that was not documented prior.
[2022-02-16] MEDS: oxyCODONE HCL (*CRX) 5 MG TAB IR PO (16:20)
== END 2022-02-16 17:14 | disposition home or self-care (01) ==
PROVIDERS: PCP Family Medicine; Visit Provider Urology
PROC: (CPT 54405; principal; 2022-02-16 12:00)
DX: N52.9 Male erectile dysfunction, unspecified (principal); F17.220 Nicotine dependence, chewing tobacco, uncomplicated
CPT/HCPCS: 54405; 54235; A9270; C1813; J0330; J0690; J1100; J1170; J1580; J2250; J2405; J2704; J3010; J3370; J7030; J7120